=== PATIENT | female | born 1995 | race Caucasian/White ===

== ENCOUNTER 2017-07-10 00:59 | Emergency (ER) | payer MEDICAID ==
[2017-07-10 01:05] VITALS: BP 141/83; PULSE 106; RESP 18; TEMP 97.7; O2SAT 96
== END 2017-07-10 02:54 | disposition left against medical advice (07) ==
DX: Z53.21 Procedure and treatment not carried out due to patient leaving prior to being seen by health care provider (principal)

== ENCOUNTER 2018-03-21 02:13 | Emergency (ER) | payer MEDICAID ==
--- NOTE | 2018-03-21 02:16 | EDPHY ---
H & P Time Seen by Provider: 03/21/18 02:16 HPI/ROS: HPI CHIEF COMPLAINT: Cough HISTORY OF PRESENT ILLNESS: Patient is a 22-year-old female, she smokes tobacco regularly, additionally occasional marijuana and IV methamphetamine use , presents to the emergency room with cough x1 week. Green-yellow sputum. No blood. Denies any chest pain or shortness of breath. States that time she has wheezing. Worse after she smokes tobacco. Denies any fever, chest pain or vomiting. Past Medical History: Denies significant medical history Past Surgical History: Denies significant surgical history Social History: History polysubstance abuse including methamphetamine IV use. Smokes tobacco and marijuana. Denies alcohol. Family History: Contributory ROS REVIEW OF SYSTEMS: A comprehensive 10 point review of systems is otherwise negative aside from elements mentioned in the history of present illness. Exam Constitutional appears nontoxic no acute distress, triage nursing summary reviewed, vital signs reviewed, awake/alert. Eyes normal conjunctivae and sclera, EOMI, PERRLA. HENT normal inspection, atraumatic, moist mucus membranes, no epistaxis, neck supple/ no meningismus, no raccoon eyes. Respiratory good air movement bilaterally, bronchitic cough when she forcefully coughs, no appreciable wheezing clear to auscultation bilaterally, normal breath sounds, no respiratory distress, no wheezing. Cardiovascular rate normal, regular rhythm, no murmur, no edema, distal pulses normal. Gastrointestinal soft, non-tender, no rebound, no guarding, normal bowel sounds, no distension, no pulsatile mass. Genitourinary no CVA tenderness. Musculoskeletal no midline vertebral tenderness, full range of motion, no calf swelling, no tenderness of extremities, no meningismus, good pulses, neurovascularly intact. Skin pink, warm, & dry, no rash, skin atraumatic. Neurologic awake, alert and oriented x 3, AAOx3, moves all 4 extremities equally, motor intact, sensory intact, CN II-XII intact, normal cerebellar, normal vision, normal speech. Psychiatric normal mood/affect. Heme/Lymph/Immune no lymphadenopathy. Differential Diagnosis: Includes but is not limited to in a particular order viral syndrome, upper respiratory tract infection, reactive airway disease, pneumonia, pneumonitis, tobacco abuse, marijuana abuse, methamphetamine abuse Medical Decision Making: Plan for this patient two view chest x-ray. Rule out pneumonia. Here in the emergency room her vitals are stable. She has good air movement no wheezing. No respiratory distress. Re-evaluation: Patient chest x-ray two view reviewed. No evidence of acute cardiopulmonary disease no evidence pneumonia. Re-examination vital signs stable. No hypoxia she is resting comfortably. Prescription given for Mucinex an albuterol take-home inhaler. No signs of infection on exam or on x-ray. Recommend she refrain from smoking cigarettes, methamphetamine or drugs. Return precautions discussed she understands return emergency room if develops worsening symptoms questions or concerns prior Source: Patient - Medical/Surgical History Hx Asthma: No Hx Chronic Respiratory Disease: No Hx Diabetes: No Hx Cardiac Disease: No Hx Renal Disease: No Hx Cirrhosis: No Hx Alcoholism: No Hx HIV/AIDS: No Hx Splenectomy or Spleen Trauma: No Other PMH: pmh- , depression - Social History Smoking Status: Current every day smoker Constitutional: Initial Vital Signs Temperature (C) 36.4 C 03/21/18 02:22 Heart Rate 87 03/21/18 02:22 Respiratory Rate 18 03/21/18 02:22 Blood Pressure 135/76 H 03/21/18 02:22 O2 Sat (%) 99 03/21/18 02:22 O2 Delivery Mode Room Air Allergies/Adverse Reactions: No Known Allergies Allergy (Verified 03/21/18 02:25) Home Medications: Medication Instructions Recorded guaiFENesin [Guaifenesin ER] 600 mg PO BID #10 tab.er.12h 03/21/18 Departure - Departure Disposition: Home, Routine, Self-Care Clinical Impression: Bronchitis Condition: Good Instructions: Acute Bronchitis (ED) Additional Instructions: 1. Drink lots of fluids stay well-hydrated 2. Refrain from smoking cigarettes or marijuana. 3. Refrain from doing methamphetamine 4. Return emergency room if you worsening symptoms. Referrals: NONE *PRIMARY CARE P,. [Primary Care Provider] - As per Instructions Prescriptions: guaiFENesin [Guaifenesin ER] 600 mg PO BID #10 tab.er.12h
[2018-03-21 02:25] VITALS: BP 135/76
[2018-03-21] MEDS ORDERED: ALBUTEROL INH PREPACK MDI TAKEHOME ONE (02:32)
== END 2018-03-21 03:18 | disposition home or self-care (01) ==
DX: J40 Bronchitis, not specified as acute or chronic (principal); F17.200 Nicotine dependence, unspecified, uncomplicated

== ENCOUNTER 2018-12-03 12:12 | Emergency (ER) | payer MEDICAID ==
[2018-12-03] MEDS ORDERED: NS 1,000 ML IV ONE ×2 (12:26)
[2018-12-03] MEDS ORDERED: RANITIDINE 50 MG/2 ML VIAL IVP ONE (12:26)
--- NOTE | 2018-12-03 12:26 | EDPHY ---
H & P Stated Complaint: Back pain since 12/02/18, 5 days since meth use, . Time Seen by Provider: 12/03/18 12:25 HPI/ROS: HPI: This is a 23-year-old female who presents with Chief Complaint: Back pain since 12/02/18, 5 days since meth use, . Location: Right upper quadrant, epigastric Quality: Pain Duration: 2 days Signs and Symptoms: no fever, no nausea, no vomiting, no hematemesis, no blood in stool, no abdominal bloating, no diarrhea, no back pain, no urinary symptoms , no vaginal bleeding/discharge, no indigestion, no chest pain, no shortness of breath Timing: Acute, intermittent Severity: [id number] Context: Patient reports her last menstrual period was 2 months ago, [facility] the last 6 days, presents with complaints of gradual onset of bandlike right upper quadrant and epigastric pain that radiates into both flanks. Nothing makes the pain better or worse. Denies history of GERD, indigestion, hematemesis, nausea, vomiting. Patient is . Denies any vaginal bleeding, vaginal discharge. Eating and drinking without difficulty. Patient is unsure of blood type. Modifying Factors: None Comment: ROS: A comprehensive 10 system review of systems is otherwise negative aside from elements mentioned in the history of present illness. MEDICAL/SURGICAL/SOCIAL HISTORY: Medical history: Generally healthy. Does not take any regular medications. Surgical history: Denies Social history: Current every day smoker. Methamphetamine user. Family history noncontributory. CONSTITUTIONAL: Nontoxic-appearing young adult white female, awake and alert, no obvious distress HEENT: Atraumatic and normocephalic, PERRL, EOMI. Nares patent; no rhinorrhea; no nasal mucosal edema. Tympanic membranes clear. Oropharynx clear, no exudate and moist pink mucosa. Airway patent. No lymphadenopathy. No meningismus. Cardiovascular: Normal S1/S2, regular rate, regular rhythm, without murmur rub or gallop. PULMONARY/CHEST: Symmetrical and nontender. Clear to auscultation bilaterally. Good air movement. No accessory muscle usage. ABDOMEN: Soft, nondistended, mild epigastric and right upper quadrant tenderness, no rebound, no guarding, no peritoneal signs, no masses or organomegaly. No CVAT. EXTREMITIES: 2/2 pulses, strength 5/5, no deformities, no clubbing, no cyanosis or edema. NEUROLOGICAL: no focal neuro deficits. GCS 15. SKIN: Warm and dry, no erythema. no rash. Good capillary refill. Source: Patient Exam Limitations: No limitations - Personal History LMP (Females 10-55): Current Tetanus Diphtheria and Acellular Pertussis (TDAP): Yes - Medical/Surgical History Hx Asthma: No Hx Chronic Respiratory Disease: No Hx Diabetes: No Hx Cardiac Disease: No Hx Renal Disease: No Hx Cirrhosis: No Hx Alcoholism: No Hx HIV/AIDS: No Hx Splenectomy or Spleen Trauma: No Other PMH: pmh- , depression - Social History Smoking Status: Current every day smoker Constitutional: Initial Vital Signs Temperature (C) 36.4 C 12/03/18 12:16 Heart Rate 99 12/03/18 12:16 Respiratory Rate 16 12/03/18 12:16 Blood Pressure 137/76 H 12/03/18 12:16 O2 Sat (%) 99 12/03/18 12:16 O2 Delivery Mode Room Air Allergies/Adverse Reactions: No Known Allergies Allergy (Verified 03/21/18 02:25) Home Medications: Medication Instructions Recorded Nitrofurantoin Macrobid [Macrobid] 100 mg PO BID #14 cap 12/03/18 Pnv No.121/Iron/Folic Acid 1 each PO DAILY #30 tablet 12/03/18 [ Multivitamin Tablet] Promethazine HCl 25 mg PO Q6 PRN #10 tablet 12/03/18 Medical Decision Making - Diagnostics Imaging Results: Imaging Impressions Abdomen Ultrasound 12/03/18 14:43 Impression: 1. Cholelithiasis with the gallbladder contracted, however, the patient just ate. 2. Fatty infiltration of the liver. Results called and discussed with Jyothi Morrell PA-C on December 03, 2018 at 1540 hours. Obstetrics Ultrasound 12/03/18 14:43 Impression: Single viable intrauterine with an estimated gestational age by ultrasound of 8 weeks and 5 days. Heart rate is 205 bpm. Results called and discussed with Jyothi Morrell PA-C on December 03, 2018 at 1538 hours. ED Course/Re-evaluation: Vital signs reviewed and stable upon arrival. No systemic signs. IV access, laboratory studies, IV fluids, urinalysis, medications ordered Patient given 2 L normal saline, IV Zantac 1328: Notified by RN that patient complaining that normal saline is "burning her veins." IV fluids discontinued. 1400: Labs reviewed. WBC 13 K likely reactive secondary to , potassium 4.2, creatinine 0.5, no elevated LFTs Blood type O-positive 1410: Urinalysis shows 1+ LE, 10-15 WBC, trace bacteria; sent for urine culture and will treat as with Macrobid 1415: Notified by RN that patient is hungry and requesting food. Given meal tray and ate without difficulty. 1443: Serum HCG quant 53,000. Ob ultrasound ordered along with right upper quadrant ultrasound for mild right upper quadrant epigastric tenderness 1535: Called by radiologist, Dr. Grullon, who reports that right upper quadrant ultrasound shows gallstones but no sludge, Burr signs, signs of cholecystitis. Common bile duct is normal caliber. OB ultrasound shows intrauterine with heart tones at 205 beats per minute and measuring approximately 8 weeks and 5 days. [facility], prescription for promethazine, Macrobid and vitamins. Will Be [facility]. This patient was seen under the supervision of my secondary supervising physician. I evaluated care for this patient with attending. Discussed this patient with Dr. Pop. Differential Diagnosis: Abdominal pain including but not limited to appendicitis, cholecystitis, gastritis and urinary tract infection. - Data Points Laboratory Results: Laboratory Results 12/03/18 12:47 12/03/18 12:47 12/03/18 12/03/18 12/03/18 13:48 12:47 12:47 WBC RBC Hgb Hct MCV MCH MCHC RDW Plt Count MPV Neut % (Auto) Lymph % (Auto) [place] % (Auto) Eos % (Auto) Baso % (Auto) Nucleat RBC Rel Count Absolute Neuts (auto) Absolute Lymphs (auto) Absolute Monos (auto) Absolute Eos (auto) Absolute Basos (auto) Absolute Nucleated RBC Immature Gran % Immature Gran # Sodium Potassium Chloride Carbon Dioxide Anion Gap BUN Creatinine Estimated GFR Glucose Calcium Total Bilirubin 0.2 mg/dL mg/dL (0.1-1.4) Conjugated Bilirubin 0.2 mg/dL mg/dL (0.0-0.5) Unconjugated Bilirubin 0.0 mg/dL mg/dL (0.0-1.1) AST 33 IU/L IU/L (14-46) ALT 47 IU/L IU/L (9-52) Alkaline Phosphatase 57 IU/L IU/L (38-126) Total Protein 7.2 g/dL g/dL (6.3-8.2) Albumin 3.8 g/dL g/dL (3.5-5.0) Beta HCG, Qual Beta HCG, Quant Urine Color YELLOW Urine Appearance HAZY Urine pH 5.0 (5.0-7.5) Ur Specific [place] 1.016 (1.002-1.030) Urine Protein NEGATIVE (NEGATIVE) Urine Ketones NEGATIVE (NEGATIVE) Urine Blood NEGATIVE (NEGATIVE) Urine Nitrate NEGATIVE (NEGATIVE) Urine Bilirubin NEGATIVE (NEGATIVE) Urine Urobilinogen NEGATIVE EU EU (0.2-1.0) Ur Leukocyte Esterase 1+ H (NEGATIVE) Urine RBC 1-3 /hpf /hpf (0-3) Urine WBC 10-15 /hpf H /hpf (0-3) Ur Epithelial Cells TRACE /lpf /lpf (NONE-1+) Urine Bacteria TRACE /hpf H /hpf (NONE SEEN) Urine Mucus TRACE /lpf /lpf (NONE-1+) Urine Glucose NEGATIVE (NEGATIVE) Patient ABO/Rh O POSITIVE 12/03/18 12/03/18 12/03/18 12:47 12:47 12:47 WBC 13.03 10^3/uL H 10^3/uL (3.80-9.50) RBC 4.33 10^6/uL 10^6/uL (4.18-5.33) Hgb 13.0 g/dL g/dL (12.6-16.3) Hct 40.4 % % (38.0-47.0) MCV 93.3 fL fL (81.5-99.8) MCH 30.0 pg pg (27.9-34.1) MCHC 32.2 g/dL L g/dL (32.4-36.7) RDW 13.1 % % (11.5-15.2) Plt Count 360 10^3/uL 10^3/uL (150-400) MPV 10.9 fL fL (8.7-11.7) Neut % (Auto) 76.5 % H % (39.3-74.2) Lymph % (Auto) 15.0 % % (15.0-45.0) [place] % (Auto) 5.2 % % (4.5-13.0) Eos % (Auto) 2.6 % % (0.6-7.6) Baso % (Auto) 0.3 % % (0.3-1.7) Nucleat RBC Rel Count 0.0 % % (0.0-0.2) Absolute Neuts (auto) 9.97 10^3/uL H 10^3/uL (1.70-6.50) Absolute Lymphs (auto) 1.95 10^3/uL 10^3/uL (1.00-3.00) Absolute Monos (auto) 0.68 10^3/uL 10^3/uL (0.30-0.80) Absolute Eos (auto) 0.34 10^3/uL 10^3/uL (0.03-0.40) Absolute Basos (auto) 0.04 10^3/uL 10^3/uL (0.02-0.10) Absolute Nucleated RBC 0.00 10^3/uL 10^3/uL (0-0.01) Immature Gran % 0.4 % % (0.0-1.1) Immature Gran # 0.05 10^3/uL 10^3/uL (0.00-0.10) Sodium 135 mEq/L mEq/L (135-145) Potassium 4.2 mEq/L mEq/L (3.5-5.2) Chloride 104 mEq/L mEq/L (97-110) Carbon Dioxide 21 mEq/l L mEq/l (22-31) Anion Gap 10 mEq/L mEq/L (6-14) BUN 12 mg/dL mg/dL (7-23) Creatinine 0.5 mg/dL L mg/dL (0.6-1.0) Estimated GFR > 60 Glucose 92 mg/dL mg/dL (70-100) Calcium 9.5 mg/dL mg/dL (8.5-10.4) Total Bilirubin Conjugated Bilirubin Unconjugated Bilirubin AST ALT Alkaline Phosphatase Total Protein Albumin Beta HCG, Qual POSITIVE Beta HCG, Quant 80250.00 mIU/mL H mIU/mL (0.00-4.83) Urine Color Urine Appearance Urine pH Ur Specific [place] Urine Protein Urine Ketones Urine Blood Urine Nitrate Urine Bilirubin Urine Urobilinogen Ur Leukocyte Esterase Urine RBC Urine WBC Ur Epithelial Cells Urine Bacteria Urine Mucus Urine Glucose Patient ABO/Rh Medications Given: Discontinued Medications Sodium Chloride (Ns) 1,000 mls @ 0 mls/hr IV ONCE ONE; Wide Open PRN Reason: Protocol Stop: 12/03/18 12:27 Last Admin: 12/03/18 12:55 Dose: Not Given Sodium Chloride (Ns) 1,000 mls @ 0 mls/hr IV ONCE ONE; Wide Open PRN Reason: Protocol Stop: 12/03/18 12:27 Last Admin: 12/03/18 13:06 Dose: Not Given Nitrofurantoin Macrocrystals (Macrobid) 100 mg PO EDNOW ONE PRN Reason: Protocol Stop: 12/03/18 14:12 Last Admin: 12/03/18 14:18 Dose: 100 mg Ranitidine HCl (Zantac) 50 mg IVP EDNOW ONE Stop: 12/03/18 12:27 Last Admin: 12/03/18 12:55 Dose: 50 mg Departure - Departure Disposition: Home, Routine, Self-Care Clinical Impression: Bacteria in urine Qualifiers: Weeks of gestation: 8 weeks Qualified Code(s): Z3A.08 - 8 weeks gestation of Gallstones without obstruction of gallbladder Qualifiers: Cholelithiasis location: gallbladder Cholecystitis presence: without cholecystitis Qualified Code(s): K80.20 - Calculus of gallbladder without cholecystitis without obstruction Condition: Good Instructions: (ED), Gallstones (ED), Low Fat Diet (ED), Urinary Tract Infection in (ED) Additional Instructions: Consume a minimum of 8-10 glasses of water or electrolyte fluid replacement drinks that include Gatorade, Powerade, Pedialyte. Take vitamin daily. Take antibiotic daily for urinary tract infection. Take promethazine 1 tab every 4-6 hours as needed for nausea, vomiting Establish care at the [facility]. Eat a low-fat diet as ultrasound shows that you have gallstones. Refrain from using alcohol, drugs, tobacco as you are . Referrals: [facility],. [Clinic] - As per Instructions [facility] 24 Hours [Outside] - As per Instructions Prescriptions: Nitrofurantoin Macrobid [Macrobid] 100 mg PO BID #14 cap Pnv No.121/Iron/Folic Acid [ Multivitamin Tablet] 1 each PO DAILY #30 tablet Promethazine HCl 25 mg PO Q6 PRN #10 tablet PRN Reason: Nausea/Vomiting, Use 1st
[2018-12-03 13:06] LABS: PLATELET COUNT 360 10^3/uL (150-400)
[2018-12-03] MEDS ORDERED: NITROFURANTOIN MACROBID 100 MG CAP PO ONE (14:11)
[2018-12-03 15:58] VITALS: BP 131/88
--- NOTE | 2018-12-03 16:39 | ASDISCHSUM ---
Discharge Information Plan Status:Substance Abuse Referrals Medically Cleared to Leave: Discharge Date:12/03/2018 04:00 PM CM D/C Disposition:Other (Not listed) ADT D/C Disposition:Home, Routine, Self-Care Projected Discharge Date:12/03/2018 04:00 PM Transportation at D/C:Taxicab Discharge Delay Reason: Follow-Up Date:12/03/2018 04:00 PM Discharge Slot: Final Diagnosis: Placement Information Patient Contact Information Contact Name:ROBERTHJAVIER Relationship: Address: Home Phone: Work Phone: City: Alternate Phone: State/Zip Code: Email: Financial Information Financial Class:Medicaid Primary Plan Desc:[employer] Primary Plan Number:[id number] Secondary Plan Desc: Secondary Plan Number: Assessment Information Intervention Information Intervention Type:Community Resources Date of Service:12/03/2018 04:35 PM Patient Type:Emergency Room Staff Member:GERRY Bangura, Rowena Hours:0.25 Discipline:Seo Team Lead Severity: Comment:Spoke w/pt and she states she is in [facility] program at [facility]. Pt states she is being transferred to another treatment facility tomorrow. Pt states she plans on following up with her OBGYN in [place]. Pt [facility] on [facility]. Pt called [facility] and they provided a cab for pt to return to their TRT program. Pt states she has family and other suppor t in [place].
== END 2018-12-03 16:00 | disposition home or self-care (01) ==
DX: O23.11 Infections of bladder in pregnancy, first trimester (principal); O99.611 Diseases of the digestive system complicating pregnancy, first trimester; O26.611 Liver and biliary tract disorders in pregnancy, first trimester; K80.20 Calculus of gallbladder without cholecystitis without obstruction; K76.0 Fatty (change of) liver, not elsewhere classified; Z3A.08 8 weeks gestation of pregnancy
CPT/HCPCS: 96374; J2780

== ENCOUNTER → 2019-02-23 | Outpatient (CLI) | payer MEDICAID | LOC: FIMAGING 14:05 | PROVIDERS: ATTEND Obstetrics & Gynecology | DX: O99.322 Drug use complicating pregnancy, second trimester (principal); O99.332 Smoking (tobacco) complicating pregnancy, second trimester; F17.200 Nicotine dependence, unspecified, uncomplicated; Z3A.20 20 weeks gestation of pregnancy ==